=== PATIENT | male | born 1980 | race Caucasian/White ===

== ENCOUNTER → 2020-05-22 14:30 | Outpatient (REF) | payer BC, SELFPAY | LOC: ANHLAB 14:30 | PROVIDERS: PCP Nurse Practitioner Family; Visit Provider Nurse Practitioner | DX: L72.0 Epidermal cyst (principal) | CPT/HCPCS: 88304 ==

== ENCOUNTER 2022-06-21 11:44 | Emergency (ER) | payer OTHER, SELFPAY ==
[2022-06-21 12:11] VITALS: BP 118/91; PULSE 78; RESP 18; TEMP 36.8; O2SAT 97
--- NOTE | 2022-06-21 12:30 | ED.URI ---
HPI - URI/Sore Throat General Chief Complaint: Upper Respiratory Infection Stated Complaint: congestion,bilateral eye irritation Time Seen by Provider: 06/21/22 12:30 Source: patient and RN notes reviewed Mode of arrival: ambulatory Limitations: no limitations History of Present Illness HPI Narrative: 42-year-old male presented for complaint of cough congestion and sore throat for over one week. Now with continued sinus congestion and eye drainage with swelling and redness to both eyes. States he has thick stringy green discharge from eyes, and they were crusted this morning. Denies pain but reports irritation and burning. He has stopped wearing contacts. Negative home covid test yesterday. denies headache, vision changes, dizziness, shortness of breath, wheezing, nausea, vomiting, diarrhea, fevers or chills. He has taken antihistamines for symptoms. MD elicited complaint: cough Related Data Home Medications Medication Instructions Recorded Confirmed escitalopram oxalate 10 mg tablet 10 mg PO DAILY 04/04/20 06/21/22 (Lexapro) Allergies Allergy/AdvReac Type Severity Reaction Status Date / Time amoxicillin Allergy Unknown Hives Verified 06/21/22 12:22 Review of Systems Review of Systems: per HPI [facility] Social History Social History Smoking status: Never smoker Alcohol intake: never Substance use: never Substance use type: does not use Exam Narrative: GENERAL: Ill-appearing, nontoxic EYES: PERRLA, conjunctival injection bilaterally with mild surrounding erythema and yellow drainage ENT: Mucous membranes moist. TMs pearly moya with dull light reflex bilaterally; no tragal tenderness. Oropharynx erythematous without lesions or exudate, no drooling, no hoarseness, no trismus, uvula midline. CHEST: Clear to auscultation, breath sounds equal. No wheezing, rhonchi, rales, or stridor. HEART: Regular rate and rhythm. No murmur heard. SKIN: Warm, dry, no rash. NEURO: Alert and oriented x3. PSYCH: Normal mood and affect Course Course Emergency Course: Patient is aware of diagnosis, understands and agrees to treatment plan. Anticipatory guidance given. Patient agrees to follow-up as directed and is aware of reasons to seek care at the emergency department. Portions of this record may have been created with voice recognition software Level of Care: Express Care Visit Vital Signs Vital signs: Vital Signs Temperature 98.2 F 06/21/22 12:11 Pulse Rate 78 06/21/22 12:11 Respiratory Rate 18 06/21/22 12:11 Blood Pressure 118/91 H 06/21/22 12:11 Pulse Oximetry 97 06/21/22 12:11 Oxygen Delivery Room Air 06/21/22 12:11 Temperature 98.2 F 06/21/22 12:11 Pulse Rate 78 06/21/22 12:11 Respiratory Rate 18 06/21/22 12:11 Blood Pressure 118/91 H 06/21/22 12:11 Pulse Oximetry 97 06/21/22 12:11 Oxygen Delivery Room Air 06/21/22 12:11 reviewed MDM - URI/Sore Throat MDM Narrative Medical decision making narrative: Advised supportive measures and signs/symptoms to go to the ER. Pt is appropriate for outpt treatment and f/u. Differential Diagnosis Differential diagnosis: Likely upper respiratory infection, sinusitis and viral infection Discharge Plan Discharge Clinical Impression: Sinusitis Qualifiers: Sinusitis location: unspecified location Chronicity: acute Recurrence: non-recurrent Qualified Code(s): J01.90 - Acute sinusitis, unspecified Conjunctivitis Qualifiers: Conjunctivitis type: other Laterality: bilateral Qualified Code(s): H10.89 - Other conjunctivitis Patient Disposition: Home, Self-Care Condition: Stable Instructions: Antibiotic Form, Rhinosinusitis (ED), Conjunctivitis (ED) Additional Instructions: Recommend Flonase spray and Zyrtec (or Claritin/Nilda) over the counter Cough syrup may cause drowsiness; avoid driving or take it at night time. Tylenol 1000mg every 8 hours as needed
== END 2022-06-21 12:50 | disposition home or self-care (01) ==
PROVIDERS: Emergency Provider Nurse Practitioner Family; PCP Nurse Practitioner Family
DX: J01.90 Acute sinusitis, unspecified (principal); H10.89 Other conjunctivitis
CPT/HCPCS: 99213; G0463

== ENCOUNTER 2023-12-30 09:20 | Outpatient (CLI) | payer BC, SELFPAY ==
[2023-12-30 10:50] LABS: Alanine Aminotransferase 27 U/L (6-50); Aspartate Amino Transferase 53 U/L (17-59)
== END 2023-12-30 09:21 | disposition home or self-care (01) ==
LOC: ANHLAB 09:24
PROVIDERS: PCP Nurse Practitioner Family; Visit Provider Podiatrist Foot & Ankle Surgery
DX: B35.1 Tinea unguium (principal)
CPT/HCPCS: 36415; 84450; 84460